=== PATIENT | female | born 1950 | race Caucasian/White ===

== ENCOUNTER 2021-02-27 14:13 | Emergency (ER) | payer MEDICARE, OTHER ==
[2021-02-27 14:54] LABS: BASOPHILS # (AUTO) 0.1 10^3/uL (0.0-0.1); BASOPHILS % (AUTO) 0.7 %; EOSINOPHILS # (AUTO) 0.3 10^3/uL (0.0-0.7); EOSINOPHILS % (AUTO) 3.8 %; HCT - HEMATOCRIT 46.2 % (37.0-47.0); HGB - HEMOGLOBIN 15.9 g/dL (12.0-16.0); LYMPHOCYTES # (AUTO) 2.2 10^3/uL (1.5-3.5); LYMPHOCYTES % (AUTO) 25.6 %; MEAN CORPUSCULAR HEMOGLOBIN 32.4 pg (27.0-31.0); MEAN CORPUSCULAR HGB CONC 34.4 g/dL (32.0-36.0); MEAN CORPUSCULAR VOLUME 94.1 fL (81.0-99.0); MEAN PLATELET VOLUME 9.6 fL (7.9-10.8); MONOCYTES # (AUTO) 0.7 10^3/uL (0.0-1.0); NEUTROPHILS # (AUTO) 5.4 10^3/uL (1.5-6.6); NEUTROPHILS % (AUTO) 61.7 %; PLT - PLATELET COUNT 259 10^3/uL (130-450); RED BLOOD COUNT 4.91 10^6/uL (4.20-5.40); RED CELL DISTRIBUTION WIDTH 12.1 % (12.0-15.0); WHITE BLOOD COUNT 8.8 x10^3/uL (4.8-10.8)
[2021-02-27 15:01] LABS: INR 1.1 (0.8-1.2); PT - PROTHROMBIN TIME 12.5 secs (9.9-12.6)
[2021-02-27 15:10] LABS: ALBUMIN 4.8 g/dL (3.2-5.5); ALBUMIN/GLOBULIN RATIO 2.1 (1.0-2.2); CALCIUM 9.5 mg/dL (8.5-10.3); CREATININE 0.6 mg/dL (0.4-1.0); POTASSIUM 3.7 mmol/L (3.5-5.0); TOTAL PROTEIN 7.1 g/dL (6.7-8.2)
--- NOTE | 2021-02-27 16:48 | ED Physician Documentation ---
History of Present Illness - Stated complaint Stated Complaint: VOMITING BLOOD - Chief complaint Chief Complaint: Abd Pain - History obtained from History obtained from: Patient, Family - History of Present Illness Timing: Today Pain level max: 5 Pain level now: 3 - Additonal information Additional information: Patient is a 70-year-old female visiting from [place]. She states that 3 weeks ago she had emesis x1, noted it was dark in color/brown. She states that 1 week ago similar episode occurred, one episode of emesis similar color,/brown. No fallon blood that she noted. Has not had any dark or tarry stools. She states that her reflux has been worse than usual over the past month or so. She is currently on Prilosec. Nothing seems to make this better or worse. She went to the walk-in clinic and was sent here for evaluation. Patient currently asymptomatic. No nausea, diarrhea, abdominal pain. Rarely drinks alcohol. Does not smoke. No history of ulcers or gastritis. No significant NSAID use. Review of Systems Ten Systems: 10 systems reviewed and negative Constitutional: denies: Fever, Chills Nose: denies: Rhinorrhea / runny nose, Congestion Respiratory: denies: Cough GI: denies: Abdominal Pain, Diarrhea, Hematemesis, Bloody / black stool : denies: Dysuria Skin: denies: Rash Musculoskeletal: denies: Neck pain, Back pain Neurologic: denies: Headache PD PAST MEDICAL HISTORY - Past Medical History Past Medical History: Yes Cardiovascular: Other GI: GERD Other Past Medical History: reynauds - Past Surgical History Past Surgical History: Yes General: Cholecystectomy Ortho: Rotator cuff repair, Arthroscopic surgery /[employer]: section HEENT: Tonsil/Adenoidectomy - Present Medications Home Medications: Ambulatory Orders Medication Instructions Recorded Confirmed NIFEdipine [Nifedipine] 0 mg DAILY 02/27/21 02/27/21 Omeprazole 0 mg DAILY 02/27/21 02/27/21 Ondansetron Odt [Zofran] 4 mg TL Q6H PRN #10 tablet 02/27/21 Sucralfate [Carafate] 1 gm PO ACHS #60 tablet 02/27/21 traZODone [Desyrel] 50 mg QPM 02/27/21 02/27/21 - Allergies Allergies/Adverse Reactions: Allergies Allergy/AdvReac Type Severity Reaction Status Date / Time azithromycin Allergy Rash Verified 02/27/21 14:18 Penicillins Allergy Rash Verified 02/27/21 14:18 - Social History Does the pt smoke?: No Smoking Status: Never smoker Does the pt drink ETOH?: Yes ETOH Use: Wine Does the pt have substance abuse?: No PD ED PE NORMAL - Vitals Vital signs reviewed: Yes - General General: Alert and oriented X 3, No acute distress, Well developed/nourished - HEENT HEENT: Moist mucous membranes - Neck Neck: Supple, no meningeal sign - Cardiac Cardiac: RRR - Respiratory Respiratory: No respiratory distress, Clear bilaterally - Abdomen Abdomen: Soft, Non tender, Non distended - Rectal Rectal: Other (chaperoned by Carie ALTAMIRANO. Soft brown stool. Hemoccult negative) - Derm Derm: Warm and dry - Extremities Extremities: No edema, No calf tenderness / cord - Neuro Neuro: Alert and oriented X 3 - Psych Psych: Normal mood, Normal affect Results - Vitals Vitals: Vital Signs - 24 hr 02/27/21 02/27/21 14:18 17:00 Temperature 36.5 C Heart Rate 83 76 Respiratory 16 16 Rate Blood Pressure 177/90 H 143/83 H O2 Saturation 97 98 Oxygen O2 Source Room air - Labs Labs: Microbiology 02/27/21 15:40 Occult Blood - Final Stool Laboratory Tests 02/27/21 02/27/21 02/27/21 14:46 14:46 14:46 WBC 8.8 RBC 4.91 Hgb 15.9 Hct 46.2 MCV 94.1 MCH 32.4 H MCHC 34.4 RDW 12.1 Plt Count 259 MPV 9.6 Neut # (Auto) 5.4 Lymph # (Auto) 2.2 [place] # (Auto) 0.7 Eos # (Auto) 0.3 Baso # (Auto) 0.1 Absolute Nucleated RBC 0.00 Nucleated RBC % 0.0 PT 12.5 INR 1.1 Sodium Potassium Chloride Carbon Dioxide Anion Gap BUN Creatinine Estimated GFR (MDRD) Glucose Calcium Total Bilirubin AST ALT Alkaline Phosphatase Total Protein Albumin Globulin Albumin/Globulin Ratio Lipase Blood Type O POSITIVE Antibody Screen NEGATIVE 02/27/21 14:46 WBC RBC Hgb Hct MCV MCH MCHC RDW Plt Count MPV Neut # (Auto) Lymph # (Auto) [place] # (Auto) Eos # (Auto) Baso # (Auto) Absolute Nucleated RBC Nucleated RBC % PT INR Sodium 138 Potassium 3.7 Chloride 99 L Carbon Dioxide 28 Anion Gap 11.0 BUN 15 Creatinine 0.6 Estimated GFR (MDRD) 99 Glucose 124 H Calcium 9.5 Total Bilirubin 1.0 AST 22 ALT 22 Alkaline Phosphatase 65 Total Protein 7.1 Albumin 4.8 Globulin 2.3 Albumin/Globulin Ratio 2.1 Lipase 35 Blood Type Antibody Screen PD MEDICAL DECISION MAKING - ED course Complexity details: reviewed results, re-evaluated patient, considered differential, d/w patient, d/w family ED course: Patient with emesis x2 in the past 3 weeks. Concern for possible blood. There is obviously no emesis to test at this time. Hemoccult is negative. Hemoglobin is normal. No evidence of ongoing bleeding. No history of liver disease or cirrhosis. Unclear etiology of her symptoms. Patient is well-appearing, nontoxic. We will add Carafate to her omeprazole and have her follow-up with her doctor when she returns to [place]. Patient counseled regarding signs and symptoms for which I believe and urgent re-evaluation would be necessary. Patient with good understanding of and agreement to plan and is comfortable going home at this time This document was made in part using voice recognition software. While efforts are made to proofread this document, sound alike and grammatical errors may occur. Departure - Departure Disposition: 01 Home, Self Care Clinical Impression: Vomiting Qualifiers: Vomiting type: unspecified Vomiting Intractability: non-intractable Nausea presence: with nausea Qualified Code(s): R11.2 - Nausea with vomiting, unspecified Condition: Good Instructions: ED Nausea Vomiting Follow-Up: Provider,Other [Physician No Access] - Prescriptions: Sucralfate [Carafate] 1 gm PO ACHS #60 tablet Ondansetron Odt [Zofran] 4 mg TL Q6H PRN #10 tablet PRN Reason: Nausea / Vomiting Comments: Your stool does not show any occult blood in it. Your laboratory tests are normal. The cause of your symptoms recently are unclear, you should have a repeat endoscopy with your doctor. As your gastroesophageal reflux symptoms are increasing, we will add carafate to your omeprazole for now. Discharge Date/Time: 02/27/21 17:01
[2021-02-27 17:00] VITALS: BP 143/83
== END 2021-02-27 17:01 | disposition home or self-care (01) ==
LOC: ED 14:13
DX: R11.2 Nausea with vomiting, unspecified (principal)
CPT/HCPCS: 36415; 80053; 82272; 83690; 85025; 85610; 86850; 86900; 86901; 99283; 99284